=== PATIENT | male | born 1945 | race Asian ===

== ENCOUNTER 2021-11-22 19:28 | Inpatient (IN) | payer BC, MEDICAID ==
[~2021-11-22] VITALS: Ht 172.7 cm; Wt 99.3 kg
[2021-11-22 19:30] VITALS: BP 134/78
[2021-11-22] MEDS ORDERED: ALBUTEROL SULFATE/IPRATROPIU 3 ML SOL IH ONE (19:30)
[2021-11-22] MEDS ORDERED: NACL 0.9% 1,000 ML IV ONE (19:30)
[2021-11-22 20:50] LABS: ALBUMIN 1.7 g/dL (3.4-5.0); ASPARTATE AMINOTRANSFERASE 83 U/L (15-37); CARBON DIOXIDE 22.2 mmol/L (21-32); CHLORIDE 103 mmol/L (98-107); CREATININE 1.5 mg/dL (0.6-1.3); SODIUM SERUM 133 mmol/L (136-145); TOTAL BILIRUBIN 2.7 mg/dL (0.0-1.0); UREA NITROGEN, BLOOD 46 mg/dL (7-18)
[2021-11-22] MEDS ORDERED: [UNRECOGNIZED DRUG - CODE] GT (21:05)
[2021-11-22] MEDS ORDERED: CHLO118S1 PO (21:05)
[2021-11-22] MEDS ORDERED: VITA1TAB44 GT (21:05)
[2021-11-22] MEDS ORDERED: AMLO5TAB GT (21:05)
[2021-11-22] MEDS ORDERED: SENN-3 GT (21:05)
[2021-11-22] MEDS ORDERED: BISA-218 RC (21:05)
[2021-11-22] MEDS ORDERED: TYL650S GT (21:05)
[2021-11-22] MEDS ORDERED: METO25TE2 GT (21:05)
[2021-11-22] MEDS ORDERED: DOCU50LI8 GT (21:05)
[2021-11-22] MEDS ORDERED: [UNRECOGNIZED DRUG - CODE] GT (21:05)
[2021-11-22] MEDS ORDERED: SIME80TA22 GT (21:05)
[2021-11-22] MEDS ORDERED: PIPERACILLIN/TAZOBACTAM 3.375 GM in DEXTROSE 5% 50 ML IV ONE (21:05)
[2021-11-22] MEDS ORDERED: CEFE1SOL IV (21:05)
[2021-11-22] MEDS ORDERED: PANT40EC GT (21:05)
[2021-11-22] MEDS ORDERED: LISI-486 GT (21:05)
[2021-11-22 21:12] LABS: BILIRUBIN,URINE 1+ (NEGATIVE); BLOOD, URINE 3+ (NEGATIVE); LEUKOCYTE ESTERASE ,URINE TRACE (NEGATIVE); NITRITE, URINE NEGATIVE (NEGATIVE); PH,URINE 5.5 (5.0-9.0); UGLUCOSE NEGATIVE (NEGATIVE)
[2021-11-22] MEDS ORDERED: PIPERACILLIN/TAZOBACTAM 3.375 GM VIAL IV ONE (21:16)
[2021-11-22 21:24] LABS: APPEARANCE,URINE HAZY (CLEAR); COLOR,URINE AMBER (YELLOW)
[2021-11-22 21:28] LABS: RBC,URINE >100 /HPF (0-5)
[2021-11-22 21:34] LABS: BASOPHILS # (AUTO) 0.2 K/uL (0.00-0.22); BASOPHILS % (AUTO) 0.8 % (0.0-2.0); EOSINOPHILS % (AUTO) 0.1 % (0.0-4.0); HEMATOCRIT 29.1 % (36-52); HEMOGLOBIN 9.3 g/dL (12.0-18.0); LYMPHOCYTES # (AUTO) 1.1 K/uL (2.0-11.5); LYMPHOCYTES % (AUTO) 5.2 % (20.5-51.1); MEAN CORPUSCULAR HEMOGLOBIN 31 pg (27-31); MEAN CORPUSCULAR HGB CONC 32 g/dL (33-37); MEAN CORPUSCULAR VOLUME 97.1 fL (80-94); MONOCYTES # (AUTO) 1.5 K/uL (0.8-1.0); MONOCYTES % (AUTO) 7.5 % (1.7-9.3); NEUTROPHILS # (AUTO) 17.6 K/uL (1.8-7.7); NEUTROPHILS % (AUTO) 86.4 % (42.2-75.2); PLATELET COUNT (AUTO) 235 K/uL (140-450); WHITE BLOOD COUNT (AUTO) 20.3 K/uL (4.8-10.8)
[2021-11-22 21:57] LABS: LIPASE 179 U/L (73-393)
[2021-11-22 22:07] LABS: GLUCOSE 61 mg/dL (74-106)
[2021-11-22 22:08] LABS: ANION GAP 13.8 (8-16)
[2021-11-22] MEDS ORDERED: CALCIUM GLUCONATE 10% 1000 MG/10 ML VIAL IVP ONE (22:40)
[2021-11-22] MEDS ORDERED: FUROSEMIDE 20 MG/2 ML VIAL IVP ONE (22:40)
[2021-11-22] MEDS ORDERED: DEXTROSE 50% 50 ML SYR IVP ONE (22:40)
[2021-11-22] MEDS ORDERED: SODIUM ZIRCONIUM CYCLOSILICATE 10 GM POWD.PACK GT ONE (22:40)
[2021-11-22] MEDS ORDERED: INSULIN REGULAR, HUMAN 100 UNIT/ML VIAL IVP ONE (22:40)
[2021-11-22] MEDS ORDERED: CALCIUM GLUC 1 GM/50 mL NS BAG 0 ML IV ONE (22:51)
[2021-11-23] VITALS (26 sets, daily range): BP systolic 54–151; BP diastolic 54–82
[2021-11-23] MEDS ORDERED: ONDANSETRON 4 MG/2 ML VIAL IM/IVP PRN (02:50)
[2021-11-23] MEDS ORDERED: VANCOMYCIN PER PHARMACY MC PRN (02:50)
[2021-11-23] MEDS ORDERED: HYDROcodone/APAP 7.5/325 MG 1 TAB PO PRN (02:50)
[2021-11-23] MEDS ORDERED: MORPHINE SULFATE 2 MG/ML SYR IVP PRN (02:50)
[2021-11-23] MEDS ORDERED: AMIODARONE 150 MG in DEXTROSE 5% 100 ML IV ONE (02:50)
[2021-11-23] MEDS ORDERED: DOCUSATE SODIUM 100 MG GELCAP PO PRN (02:50)
[2021-11-23] MEDS ORDERED: ZOLPIDEM 5 MG TAB PO PRN (02:50)
[2021-11-23] MEDS ORDERED: guaiFENesin DM 200/20 MG-10 ML 10 ML UDC PO PRN (02:50)
[2021-11-23] MEDS ORDERED: POTASSIUM CHLORIDE 40 MEQ, LIDOCAINE MPF 1% 25 MG in NACL 0.9% 250 ML IV PRN (02:50)
[2021-11-23] MEDS ORDERED: ACETAMINOPHEN 325 MG TAB PO PRN (02:50)
[2021-11-23] MEDS ORDERED: AMIODARONE 150 MG/3 ML VIAL IV ONE ×2 (03:58→04:38)
[2021-11-23 04:03] LABS: BASOPHILS # (AUTO) 0.1 K/uL (0.00-0.22); BASOPHILS % (AUTO) 0.3 % (0.0-2.0); HEMATOCRIT 25.8 % (36-52); HEMOGLOBIN 8.2 g/dL (12.0-18.0); LYMPHOCYTES % (AUTO) 10.2 % (20.5-51.1); MEAN CORPUSCULAR HEMOGLOBIN 31 pg (27-31); MEAN CORPUSCULAR HGB CONC 32 g/dL (33-37); MEAN CORPUSCULAR VOLUME 95.9 fL (80-94); MONOCYTES # (AUTO) 1.5 K/uL (0.8-1.0); MONOCYTES % (AUTO) 7.4 % (1.7-9.3); NEUTROPHILS # (AUTO) 16.1 K/uL (1.8-7.7); NEUTROPHILS % (AUTO) 82.1 % (42.2-75.2); PLATELET COUNT (AUTO) 258 K/uL (140-450); RED BLOOD CELL COUNT(AUTO) 2.68 MIL/uL (4.20-6.10); WHITE BLOOD COUNT (AUTO) 19.6 K/uL (4.8-10.8)
[2021-11-23 04:15] LABS: ANION GAP 12.9 (8-16); CARBON DIOXIDE 22.2 mmol/L (21-32); CHLORIDE 103 mmol/L (98-107); CREATININE 1.6 mg/dL (0.6-1.3); GLUCOSE 64 mg/dL (74-106); POTASSIUM 5.1 mmol/L (3.5-5.1); SODIUM SERUM 133 mmol/L (136-145); UREA NITROGEN, BLOOD 48 mg/dL (7-18)
[2021-11-23 04:30] LABS: CHOL/HDL RATIO 2.4 (1-4.5); MAGNESIUM 3.1 mg/dL (1.8-2.4); PHOSPHORUS 5.3 mg/dL (2.5-4.9); THYROID STIMULATING HORMONE 0.76 uIU/mL (0.34-3.74)
[2021-11-23] MEDS: AMIODARONE 450 MG in DEXTROSE 5% 250 ML IV SCH ×2 (05:17→20:56)
[2021-11-23] MEDS ORDERED: PIPERACILLIN/TAZOBACTAM 3.375 GM VIAL IV ONE (06:32)
[2021-11-23] MEDS: PANTOPRAZOLE 40 MG TABEC PO SCH (08:58)
[2021-11-23] MEDS: PIPERACILLIN/TAZOBACTAM 3.375 GM in DEXTROSE 5% 50 ML IV SCH ×3 (08:58→18:00)
[2021-11-23] MEDS ORDERED: VANCOMYCIN HCL 1.25 GM in DEXTROSE 5% 250 ML IV SCH (09:30)
[2021-11-23] MEDS: PROPOFOL 1000 MG/100 ML PREMIX 100 ML IV PRN ×2 (12:06→23:24)
[2021-11-23 15:54] LABS: ALBUMIN 1.5 g/dL (3.4-5.0)
[2021-11-23] MEDS ORDERED: AMIODARONE 450 MG in DEXTROSE 5% 250 ML IV SCH (16:10)
[2021-11-23] MEDS ORDERED: ALBUTEROL 0.083% 2.5 MG/3 ML NEBU INH ONE (23:27)
[2021-11-24] VITALS (27 sets, daily range): BP systolic 111–143; BP diastolic 58–76
[2021-11-24] MEDS: PIPERACILLIN/TAZOBACTAM 3.375 GM in DEXTROSE 5% 50 ML IV SCH ×4 (00:26→18:36)
[2021-11-24] MEDS: AMIODARONE 450 MG in DEXTROSE 5% 250 ML IV SCH ×2 (05:20→22:09)
[2021-11-24] MEDS ORDERED: ALBUTEROL SULFATE/IPRATROPIU 3 ML SOL IH PRN (05:25)
[2021-11-24] MEDS ORDERED: ALBUTEROL SULFATE/IPRATROPIU 3 ML SOL IH ONE (05:27)
[2021-11-24 06:11] LABS: BASOPHILS # (AUTO) 0.1 K/uL (0.00-0.22); BASOPHILS % (AUTO) 0.3 % (0.0-2.0); EOSINOPHILS # (AUTO) 0.1 K/uL (0-0.4); EOSINOPHILS % (AUTO) 0.3 % (0.0-4.0); HEMATOCRIT 24.4 % (36-52); HEMOGLOBIN 7.9 g/dL (12.0-18.0); LYMPHOCYTES # (AUTO) 1.9 K/uL (2.0-11.5); LYMPHOCYTES % (AUTO) 10.7 % (20.5-51.1); MEAN CORPUSCULAR HEMOGLOBIN 31 pg (27-31); MEAN CORPUSCULAR HGB CONC 32 g/dL (33-37); MEAN CORPUSCULAR VOLUME 95.8 fL (80-94); MONOCYTES % (AUTO) 5.4 % (1.7-9.3); NEUTROPHILS % (AUTO) 83.3 % (42.2-75.2); PLATELET COUNT (AUTO) 270 K/uL (140-450); RED BLOOD CELL COUNT(AUTO) 2.55 MIL/uL (4.20-6.10); RED CELL DISTRIBUTION WIDTH 16.5 % (11.6-13.7)
[2021-11-24 06:54] LABS: ANION GAP 14.2 (8-16); CARBON DIOXIDE 21.7 mmol/L (21-32); CHLORIDE 102 mmol/L (98-107); CREATININE 1.9 mg/dL (0.6-1.3); GLUCOSE 81 mg/dL (74-106); POTASSIUM 4.9 mmol/L (3.5-5.1); SODIUM SERUM 133 mmol/L (136-145); UREA NITROGEN, BLOOD 55 mg/dL (7-18)
[2021-11-24 06:59] LABS: ALBUMIN 1.5 g/dL (3.4-5.0); BILIRUBIN,DIRECT 0.9 mg/dL (0.0-0.3); TOTAL BILIRUBIN 1.7 mg/dL (0.0-1.0)
[2021-11-24] MEDS: PANTOPRAZOLE 40 MG TABEC PO SCH (08:20)
[2021-11-24 09:06] LABS: FOLIC ACID > 20.00 ng/mL (>3.0)
[2021-11-24] MEDS ORDERED: VANCOMYCIN 1,000 MG in DEXTROSE 5% 250 ML IV SCH (11:00)
[2021-11-24] MEDS: PROPOFOL 1000 MG/100 ML PREMIX 100 ML IV PRN ×2 (11:28→19:39)
[2021-11-24] MEDS ORDERED: FUROSEMIDE 20 MG/2 ML VIAL IVP ONE (12:25)
[2021-11-24] MEDS: FUROSEMIDE 40 MG/4 ML VIAL IVP SCH ×2 (13:12→20:03)
[2021-11-24] MEDS: fentaNYL citrate 1 MG in NACL 0.9% 80 ML IV PRN (18:36)
[2021-11-25] VITALS (30 sets, daily range): BP systolic 81–130; BP diastolic 41–69
[2021-11-25] MEDS: PROPOFOL 1000 MG/100 ML PREMIX 100 ML IV PRN ×3 (03:20→18:16)
[2021-11-25] MEDS: PIPERACILLIN/TAZOBACTAM 3.375 GM in DEXTROSE 5% 50 ML IV SCH ×5 (05:30→18:17)
[2021-11-25 06:36] LABS: BASOPHILS # (AUTO) 0.1 K/uL (0.00-0.22); BASOPHILS % (AUTO) 0.6 % (0.0-2.0); EOSINOPHILS # (AUTO) 0.5 K/uL (0-0.4); EOSINOPHILS % (AUTO) 2.7 % (0.0-4.0); HEMATOCRIT 25.1 % (36-52); LYMPHOCYTES # (AUTO) 2.3 K/uL (2.0-11.5); LYMPHOCYTES % (AUTO) 12.5 % (20.5-51.1); MEAN CORPUSCULAR HEMOGLOBIN 31 pg (27-31); MEAN CORPUSCULAR HGB CONC 32 g/dL (33-37); MEAN CORPUSCULAR VOLUME 97.8 fL (80-94); MONOCYTES # (AUTO) 0.8 K/uL (0.8-1.0); MONOCYTES % (AUTO) 4.1 % (1.7-9.3); NEUTROPHILS # (AUTO) 14.7 K/uL (1.8-7.7); NEUTROPHILS % (AUTO) 80.1 % (42.2-75.2); PLATELET COUNT (AUTO) 277 K/uL (140-450); RED BLOOD CELL COUNT(AUTO) 2.57 MIL/uL (4.20-6.10); RED CELL DISTRIBUTION WIDTH 17.4 % (11.6-13.7); WHITE BLOOD COUNT (AUTO) 18.4 K/uL (4.8-10.8)
[2021-11-25 06:44] LABS: ANION GAP 12.9 (8-16); CARBON DIOXIDE 22.8 mmol/L (21-32); CHLORIDE 100 mmol/L (98-107); CREATININE 2.4 mg/dL (0.6-1.3); GLUCOSE 94 mg/dL (74-106); POTASSIUM 4.7 mmol/L (3.5-5.1); SODIUM SERUM 131 mmol/L (136-145); UREA NITROGEN, BLOOD 60 mg/dL (7-18)
[2021-11-25] MEDS: PANTOPRAZOLE 40 MG TABEC PO SCH (08:09)
[2021-11-25] MEDS: FUROSEMIDE 40 MG/4 ML VIAL IVP SCH ×2 (08:10→22:14)
[2021-11-25] MEDS: fentaNYL citrate 1 MG in NACL 0.9% 80 ML IV PRN (09:27)
[2021-11-25 10:23] LABS: FERRITIN 1688 ng/mL (30 - 400)
[2021-11-25] MEDS ORDERED: NOREPINEPHRINE 4 MG in DEXTROSE 5% 250 ML IV PRN (11:50)
[2021-11-25] MEDS: AMIODARONE 450 MG in DEXTROSE 5% 250 ML IV SCH (13:57)
[2021-11-25 17:31] LABS: TRANSFERRIN 110 mg/dL (200 - 370)
[2021-11-25] MEDS ORDERED: ALBUMIN HUMAN 5 % 250 ML IV ONE (21:25)
[2021-11-25] MEDS: AMIODARONE 200 MG TAB GT SCH (22:10)
[2021-11-26] VITALS (29 sets, daily range): BP systolic 74–137; BP diastolic 19–85
[2021-11-26] MEDS: PIPERACILLIN/TAZOBACTAM 3.375 GM in DEXTROSE 5% 50 ML IV SCH ×4 (00:53→18:37)
[2021-11-26] MEDS ORDERED: NACL 0.9% 2,000 ML IV ONE (05:30)
[2021-11-26] MEDS ORDERED: NACL 0.9% 500 ML IV SCH (05:50)
[2021-11-26 05:55] LABS: BARBITURATE, URINE NEGATIVE ng/ml (NEG <=200); BENZODIAZEPINE, URINE NEGATIVE ng/mL (NEG <=200)
[2021-11-26 05:56] LABS: CANNABINOID, URINE NEGATIVE ng/mL (NEG <=50); COCAINE, URINE POSITIVE ng/mL (NEG <=300); OPIATE, URINE NEGATIVE ng/mL (NEG <=2000); PHENCYCLIDINE SCREEN,URINE NEGATIVE ng/mL (NEG <=25)
[2021-11-26] MEDS: PROPOFOL 1000 MG/100 ML PREMIX 100 ML IV PRN ×2 (06:35→19:32)
[2021-11-26 06:48] LABS: BASOPHILS % (AUTO) 0.3 % (0.0-2.0); EOSINOPHILS # (AUTO) 0.2 K/uL (0-0.4); EOSINOPHILS % (AUTO) 1.3 % (0.0-4.0); HEMATOCRIT 24.5 % (36-52); HEMOGLOBIN 7.8 g/dL (12.0-18.0); LYMPHOCYTES % (AUTO) 6.4 % (20.5-51.1); MEAN CORPUSCULAR HEMOGLOBIN 31 pg (27-31); MEAN CORPUSCULAR HGB CONC 32 g/dL (33-37); MEAN CORPUSCULAR VOLUME 97.8 fL (80-94); MONOCYTES # (AUTO) 0.7 K/uL (0.8-1.0); MONOCYTES % (AUTO) 4.3 % (1.7-9.3); NEUTROPHILS # (AUTO) 14.4 K/uL (1.8-7.7); NEUTROPHILS % (AUTO) 87.7 % (42.2-75.2); PLATELET COUNT (AUTO) 241 K/uL (140-450); RED BLOOD CELL COUNT(AUTO) 2.51 MIL/uL (4.20-6.10); RED CELL DISTRIBUTION WIDTH 17.3 % (11.6-13.7); WHITE BLOOD COUNT (AUTO) 16.4 K/uL (4.8-10.8)
[2021-11-26 07:03] LABS: ANION GAP 15.6 (8-16); CARBON DIOXIDE 20.7 mmol/L (21-32); CHLORIDE 98 mmol/L (98-107); GLUCOSE 71 mg/dL (74-106); POTASSIUM 5.3 mmol/L (3.5-5.1); SODIUM SERUM 129 mmol/L (136-145)
[2021-11-26 07:14] LABS: UREA NITROGEN, BLOOD 64 mg/dL (7-18)
[2021-11-26] MEDS: FUROSEMIDE 40 MG/4 ML VIAL IVP SCH ×2 (08:24→20:47)
[2021-11-26] MEDS: AMIODARONE 200 MG TAB GT SCH ×2 (08:24→20:47)
[2021-11-26] MEDS: PANTOPRAZOLE 40 MG INJ VIAL IVP SCH (09:52)
[2021-11-26] MEDS: ALBUTEROL SULFATE/IPRATROPIU 3 ML SOL IH SCH ×2 (13:52→19:20)
[2021-11-27] VITALS (31 sets, daily range): BP systolic 4–156; BP diastolic 16–92
[2021-11-27] MEDS: PIPERACILLIN/TAZOBACTAM 3.375 GM in DEXTROSE 5% 50 ML IV SCH ×3 (00:34→12:00)
[2021-11-27] MEDS ORDERED: NOREPINEPHRINE 4 MG/4 ML VIAL IV ONE (00:43)
[2021-11-27] MEDS: NOREPINEPHRINE 16 MG in DEXTROSE 5% 250 ML IV PRN ×2 (01:43→13:00)
[2021-11-27] MEDS: FUROSEMIDE 40 MG/4 ML VIAL IVP SCH ×3 (05:30→21:00)
[2021-11-27 06:57] LABS: ANION GAP 20.3 (8-16); CARBON DIOXIDE 18.1 mmol/L (21-32); CHLORIDE 95 mmol/L (98-107); CREATININE 3.7 mg/dL (0.6-1.3); GLUCOSE 83 mg/dL (74-106); SODIUM SERUM 127 mmol/L (136-145)
[2021-11-27 06:59] LABS: BASOPHILS % (AUTO) 0.2 % (0.0-2.0); EOSINOPHILS # (AUTO) 0.1 K/uL (0-0.4); EOSINOPHILS % (AUTO) 0.6 % (0.0-4.0); HEMOGLOBIN 8.9 g/dL (12.0-18.0); LYMPHOCYTES # (AUTO) 1.4 K/uL (2.0-11.5); MEAN CORPUSCULAR HEMOGLOBIN 31 pg (27-31); MEAN CORPUSCULAR HGB CONC 32 g/dL (33-37); MEAN CORPUSCULAR VOLUME 99.2 fL (80-94); MONOCYTES # (AUTO) 0.9 K/uL (0.8-1.0); MONOCYTES % (AUTO) 5.3 % (1.7-9.3); NEUTROPHILS # (AUTO) 15.2 K/uL (1.8-7.7); NEUTROPHILS % (AUTO) 85.9 % (42.2-75.2); PLATELET COUNT (AUTO) 303 K/uL (140-450); RED BLOOD CELL COUNT(AUTO) 2.82 MIL/uL (4.20-6.10); RED CELL DISTRIBUTION WIDTH 18.3 % (11.6-13.7); WHITE BLOOD COUNT (AUTO) 17.7 K/uL (4.8-10.8)
[2021-11-27] MEDS: ALBUTEROL SULFATE/IPRATROPIU 3 ML SOL IH SCH ×3 (07:10→19:16)
[2021-11-27 07:13] LABS: POTASSIUM 6.4 mmol/L (3.5-5.1); UREA NITROGEN, BLOOD 70 mg/dL (7-18)
[2021-11-27] MEDS ORDERED: SODIUM POLYSTYRENE 15 GM/60 ML UDBTL PO SCH (07:35)
[2021-11-27] MEDS ORDERED: VASOPRESSIN 20 UNITS/ML VIAL ONE (07:46)
[2021-11-27] MEDS: VASOPRESSIN 20 UNITS in NACL 0.9% 250 ML IV PRN ×2 (07:54→18:41)
[2021-11-27] MEDS ORDERED: CALCIUM CHLORIDE 10% 100 MG/ML SYR IVP SCH (08:00)
[2021-11-27] MEDS ORDERED: SODIUM BICARBONATE 8.4% PFS 50 MEQ/50 ML SYR IVP SCH (08:00)
[2021-11-27] MEDS ORDERED: INSULIN REGULAR, HUMAN 100 UNIT/ML VIAL IVP SCH (08:00)
[2021-11-27] MEDS ORDERED: DEXTROSE 50% 50 ML SYR IVP SCH (08:00)
[2021-11-27] MEDS: AMIODARONE 200 MG TAB GT SCH ×2 (09:00→21:00)
[2021-11-27] MEDS: PHENYLEPHRINE 40 MG in NACL 0.9% 250 ML IV PRN ×3 (09:30→19:03)
[2021-11-27] MEDS: PANTOPRAZOLE 40 MG INJ VIAL IVP SCH (09:44)
[2021-11-27] MEDS ORDERED: PIPERACILLIN/TAZOBACTAM 2.25 GM in DEXTROSE 5% 50 ML IV SCH (21:00)
== END 2021-11-28 03:18 | DRG 720 ==
LOC: MED 19:28 → MTU 11-23 03:17 → MIC 11-23 06:38
PROVIDERS: ADMIT Student in an Organized Health Care Education/Training Program; ATTEND Student in an Organized Health Care Education/Training Program
PROC: 5A1955Z Respiratory Ventilation, Greater than 96 Consecutive Hours (ICD-10-PCS; principal; 2021-11-22)
PROC: 0W9G3ZZ Drainage of Peritoneal Cavity, Percutaneous Approach (ICD-10-PCS; 2021-11-25)
DX: A41.9 Sepsis, unspecified organism (principal); N17.0 Acute kidney failure with tubular necrosis; J80 Acute respiratory distress syndrome; J69.0 Pneumonitis due to inhalation of food and vomit; R65.21 Severe sepsis with septic shock; I21.A1 Myocardial infarction type 2; D63.8 Anemia in other chronic diseases classified elsewhere; R18.8 Other ascites; R13.11 Dysphagia, oral phase; Z93.0 Tracheostomy status; E43 Unspecified severe protein-calorie malnutrition; I48.91 Unspecified atrial fibrillation; R13.10 Dysphagia, unspecified; J15.1 Pneumonia due to Pseudomonas; K74.60 Unspecified cirrhosis of liver; E80.6 Other disorders of bilirubin metabolism; Z20.822 Contact with and (suspected) exposure to COVID-19; Z86.73 Personal history of transient ischemic attack (TIA), and cerebral infarction without residual deficits; Z79.899 Other long term (current) drug therapy; Z93.1 Gastrostomy status; Z79.1 Long term (current) use of non-steroidal anti-inflammatories (NSAID); Z68.33 Body mass index [BMI] 33.0-33.9, adult
CPT/HCPCS: 36415; 36600; 49083; 70450; 71045; 74018; 76705; 80048; 80053; 80076; 80202; 80305; 81001; 82140; 82150; 82607; 82728; 82746; 82803; 82948; 83036; 83540; 83605; 83690; 83735; 83880; 84100; 84443; 84484; 85025; 85045; 85610; 85730; 86704; 86706; 86708; 86709; 86803; 87040; 87070; 87075; 87081; 87086; 87205; 87340; 93005; 94003; 94640; 96361; 96365; 96375; 99291; C9113; J0282; J0610; J1644; J1815; J1940; J2001; J2270; J2370; J2543; J2704; J3010; J3370; J3490; J7030; J7060; J7613; P9041; Q0092